=== PATIENT | male | born 1955 | race Caucasian/White ===

== ENCOUNTER 2017-10-29 09:35 | Inpatient (IN) | payer MEDICARE, MEDICAID ==
--- NOTE | 2017-10-29 10:11 | C.PDOC ---
History Of Present Illness 62 y/o male with history of DM and HTN presents to ED for evaluation on possible Gangrene to left great toe. Patient states he had wound on left foot for "awhile" and was told to come to ED for further evaluation. Dr. Diez called ED prior to patient visit instructed CTA and Pre op work up to be done and admit under his service. 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 Time Seen by Provider: 10/29/17 09:59 Chief Complaint (Nursing): Lower Extremity Problem/Injury History Per: Patient History/Exam Limitations: no limitations Onset/Duration Of Symptoms: Days Current Symptoms Are (Timing): Still Present Past Medical History Reviewed: Historical Data, Nursing Documentation, Vital Signs Vital Signs: Last Vital Signs Temp 98.4 F 10/29/17 13:17 Pulse 76 10/29/17 13:17 Resp 18 10/29/17 13:17 BP 207/83 H 10/29/17 13:17 Pulse Ox 98 10/29/17 13:17 - Medical History PMH: CHF, Diabetes, HTN, Hypercholesterolemia Surgical History: No Surg Hx Family History: States: No Known Family Hx - Social History Hx Alcohol Use: Yes Hx Substance Use: No - Immunization History Hx Tetanus Toxoid Vaccination: No Hx Influenza Vaccination: Yes Hx Pneumococcal Vaccination: Yes Review Of Systems Constitutional: Negative for: Fever, Chills Cardiovascular: Negative for: Chest Pain Respiratory: Negative for: Shortness of Breath Musculoskeletal: Positive for: Foot Pain Skin: Negative for: Rash Neurological: Negative for: Weakness, Numbness Physical Exam - Physical Exam Appears: Non-toxic, No Acute Distress Skin: Warm, Dry, No Rash Head: Atraumatic, Normacephalic Eye(s): bilateral: Normal Inspection Oral Mucosa: Moist Neck: Normal ROM, Supple Extremity: No Pedal Edema, No Deformity, Other (medial aspect of left great toe wound noted with ulcerated area. Erythematous foot) Extremity: Bilateral: Normal ROM Pulses: Left Dorsalis Pedis: Normal, Right Dorsalis Pedis: Normal Neurological/Psych: Oriented x3, Normal Motor, Normal Sensation Gait: Steady ED Course And Treatment - Laboratory Results Result Diagrams: 10/29/17 10:27 10/29/17 10:27 Lab Interpretation: Normal ECG: Interpreted By Me ECG Rhythm: Sinus Rhythm ECG Interpretation: Normal Rate From EC O2 Sat by Pulse Oximetry: 98 (RA) Pulse Ox Interpretation: Normal - Radiology CXR: Interpreted by Me CXR Interpretation: Yes: No Acute Disease Progress Note: CTA, Blood work, CXR, UA ordered. IV fluids administered. Patient sent by Dr Diez for evaluation of gangrene left foot. CTA lower extremity ordered Reassessment Condition: Unchanged - Physician Consult Information Physician Contacted: Jonathan Diez Jr. Outcome Of Conversation: admit Disposition Discussed With Dr.: Jonathan Diez Jr. 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 - Scribe Statement The provider has reviewed the documentation as recorded by the Scribe Lucy Liu All medical record entries made by the Scribe were at my direction and personally dictated by me. I have reviewed the chart and agree that the record accurately reflects my personal performance of the history, physical exam, medical decision making, and the department course for this patient. I have also personally directed, reviewed, and agree with the discharge instructions and disposition. Decision To Admit - Pt Status Changed To: Hospital Disposition Of: Inpatient - Admit Certification Admit to Inpatient:: After my assessment, the patient will require hospitalization for at least two midnights. This is because of the severity of symptoms shown, intensity of services needed, and/or the medical risk in this patient being treated as an outpatient. - InPatient: Physician Admission Certification: I certify that this patient requires 2 or more midnights of care for the following reason:: OVD. Gangrene left great toe - . Bed Request Type: Regular Admitting Physician: Jonathan Diez Jr. Patient Diagnosis: PVD (peripheral vascular disease)
[2017-10-29] MEDS ORDERED: Sodium Chloride 0.9% 1,000 ML IV ONE (10:12)
[2017-10-29] MEDS ORDERED: Sodium Chloride 0.9% 1,000 ML ONE (10:29)
[2017-10-29 10:31] LABS: BASO % 0.6 % (0.0-2.0); EOS # 0.2 K/uL (0.0-0.7); EOS % 2.5 % (0.0-4.0); HEMOGLOBIN 12.9 g/dL (12.0-18.0); LYMPH # 1.2 K/uL (1.0-4.3); MEAN CELL VOLUME 90.2 fL (80.0-94.0); MEAN CORPUSCULAR HGB CONC 34.4 g/dL (33.0-37.0); MEAN PLATELET VOLUME 8.6 fL (7.2-11.7); MONO # 0.9 K/uL (0.0-0.8); MONO % 11.5 % (0.0-10.0); NEUT # 5.7 K/uL (1.8-7.0); NEUT % 70.4 % (50.0-75.0); NRBC % 0.1 % (0.0-2.0); RBC 4.16 Mil/uL (4.40-5.90); RED CELL DISTRIBUTION WIDTH 12.9 % (11.5-14.5)
[2017-10-29 10:37] LABS: PROTHROMBIN TIME 11.1 SECONDS (9.7-12.2)
--- NOTE | 2017-10-29 10:47 | RAD ---
HISTORY: SOB COMPARISON: No prior. TECHNIQUE: Chest PA and lateral FINDINGS: LUNGS: No active pulmonary disease. PLEURA: No significant pleural effusion identified. No pneumothorax apparent. CARDIOVASCULAR: Normal. OSSEOUS STRUCTURES: Degenerative changes. VISUALIZED UPPER ABDOMEN: Normal. OTHER FINDINGS: None. IMPRESSION: No active disease.
[2017-10-29 10:58] LABS: ALB/GLOB RATIO 1.1 (1.0-2.1); ALBUMIN 4.1 g/dL (3.5-5.0); AST/SGOT 20 U/L (17-59); BLOOD UREA NITROGEN 18 mg/dL (9-20); CALCIUM 9.2 mg/dl (8.6-10.4); GFR AFRICAN-AMERICAN > 60; GFR NON-AFRICAN AMERICAN > 60
[2017-10-29 11:03] LABS: ALT/SGPT < 6 U/L (21-72)
[2017-10-29] MEDS ORDERED: Iodixanol 320 mg/ml 150 ml Bottle IV ONE (11:43)
[2017-10-29 11:53] LABS: URINE BILIRUBIN NEGATIVE (NEGATIVE); URINE BLOOD NEGATIVE (NEGATIVE); URINE CLARITY Clear (Clear); URINE COLOR Yellow (YELLOW); URINE GLUCOSE (UA) 3+ mg/dL (Normal); URINE LEUKOCYTE ESTERASE NEG Leu/uL (Negative); URINE PROTEIN NEGATIVE (NEGATIVE); URINE UROBILINOGEN NORMAL mg/dL (0.2-1.0)
--- NOTE | 2017-10-29 13:51 | CT ---
PROCEDURE: CT Angiography Abdomen, Pelvis and Lower Extremity with Contrast HISTORY: gangrene left great toe COMPARISON: None. TECHNIQUE: Technique: CT angiography of the abdomen, pelvis and bilateral lower extremities performed in the arterial phase of enhancement. Coronal and sagittal reformats, and well as rotating MIP images of the vessels generated at the workstation. Intravenous contrast dose: 150 mL Visipaque 320 Radiation dose: Total exam DLP = 2350.2 mGy-cm. This CT exam was performed using one or more of the following dose reduction techniques: Automated exposure control, adjustment of the mA and/or kV according to patient size, and/or use of iterative reconstruction technique. FINDINGS: CT ANGIOGRAPHY: ABDOMINAL AORTA:: Mild calcific atherosclerosis. No aneurysm or stenosis. MAJOR AORTIC BRANCHES: Celiac Mc[place]: Unremarkable. Superior mesenteric artery: Unremarkable. Inferior mesenteric artery: Calcific atherosclerotic ostial stenosis. Renal arteries: Unremarkable. PELVIC ARTERIES: Right Common Iliac: Unremarkable. Right External Iliac: Unremarkable. Right Internal Iliac: Unremarkable. Left Common Iliac: Unremarkable. Left External Iliac: Unremarkable. Left Internal Iliac: Unremarkable. RIGHT LOWER EXTREMITY ARTERIES: Right Common Femoral: Unremarkable. Right Superficial Femoral: Calcific atherosclerosis, patent. Right Profunda Femoris: Unremarkable. Right Popliteal:Calcific atherosclerosis with focal moderate stenosis in the proximal portion. Right Anterior Tibial: Faint opacification with poor visualization distally. Right Tibioperoneal Trunk: Limited evaluation due to arterial wall calcification. Right Posterior Tibial: Limited evaluation due to arterial wall calcification. Right Peroneal: Limited evaluation due to arterial wall calcification. 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 Limited evaluation due to arterial wall calcification. LEFT LOWER EXTREMITY ARTERIES: Left Common Femoral: Unremarkable. Left Superficial Femoral: Unremarkable. Left Profunda Femoris: Unremarkable. Left Popliteal: Unremarkable. Left Anterior Tibial: Faint opacification with poor visualization distally. Left Tibioperoneal Trunk: Calcific atherosclerosis, patent. Left Posterior Tibial: Limited evaluation due to arterial wall calcification. Grossly patent. Left Peroneal: Occluded at origin. Limited evaluation due to arterial wall calcification. 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 Limited evaluation due arterial wall calcification. NON-ANGIOGRAPHIC ASPECT OF THE EXAM: LOWER THORAX: Unremarkable. LIVER: Unremarkable. No gross lesion or ductal dilatation. GALLBLADDER AND BILE DUCTS: Unremarkable. PANCREAS: Unremarkable. No gross lesion or ductal dilatation. SPLEEN: Unremarkable. ADRENALS: Unremarkable. No mass. KIDNEYS AND URETERS: Right upper pole 2.3 x 2.1 cm cyst. Right interpolar 1.0 x 0.7 cm indeterminate hypodensity. Left interpolar 2.0 x 1.2 cm cyst. No hydronephrosis. STOMACH AND BOWEL: Unremarkable. No obstruction. No gross mural thickening. APPENDIX: Normal appendix. PERITONEUM: Unremarkable. No free fluid. No free air. LYMPH NODES: Unremarkable. No enlarged lymph nodes. BLADDER: Unremarkable. REPRODUCTIVE: Unremarkable. BONES: No acute fracture. OTHER FINDINGS: None. IMPRESSION: Right lower extremity: Limited evaluation of the [id number] arteries due to heavy arterial wall calcification. 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 Limited evaluation of the foot arteries due to heavy arterial wall calcification. Left lower extremity: Limited evaluation of the [id number] arteries to get heavy arterial wall calcification. 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 Arterial wall calcifications, but grossly patent posterior tibial artery with runoff to the foot. Indeterminate right interpolar renal 1.0 cm hypodensity. Additional findings as above.
[2017-10-29] MEDS: Labetalol 25mg/5ml Syringe IVP ONE ×2 (15:15→15:42)
[2017-10-29 15:24] VITALS: RESP 20
--- NOTE | 2017-10-29 15:33 | CP.PCM.CON ---
<Iraida Martin - Last Filed: 10/29/17 17:02> History of Present Illness - History of Present Illness History of Present Illness: HPI: gangrene of left toe Patient came in for wound on left foot that's been there for an unknown length of time ("awhile"). Dr. Milan ordered CTA and pre-op workup for clearance for surgery. Patient states he was treated at [facility]/04 and was seen by podiatry. Patient states he still has sensation of his toes and has a little pain on palpation of his first left toe. Patient denies fever, chills, nausea, vomiting diarrhea, constipation, shortness of breath, numbness, tingling, weakness. Patient admits to vision changes due to cataract surgery (stable),. pmh: Diabetes, HTN, HLD psh: 2016 cataract repair. Social: etoh use socially, denies tobacco and illicit drug use. Podiatry: : Baljinder OVD. 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 absent: Other Nose/Mouth/Throat: As Per HPI. absent: Epistaxis, Nasal Congestion, Dysphagia, Mouth Lesions, Tongue Swelling, Facial Pain - Cardiovascular Cardiovascular: As Per HPI. absent: Chest Pain, Chest Pain with Activity, Dyspnea on Exertion - Respiratory Respiratory: absent: Cough, Dyspnea, Hemoptysis, Dyspnea on Exertion - Gastrointestinal Gastrointestinal: absent: Abdominal Pain, Belching - Genitourinary Genitourinary: absent: Urinary Frequency, Urinary Hesitance, Urinary Urgency - Musculoskeletal Musculoskeletal: absent: Abnormal Gait, Arthralgias, Atrophy - Neurological Neurological: absent: Abnormal Gait, Abnormal Hearing, Numbness, Tingling Past Patient History - Past Medical History & Family History Past Medical History?: Yes - Past Social History Smoking Status: Never Smoked - CARDIAC Hx Congestive Heart Failure: Yes Hx Hypercholesterolemia: Yes Hx Hypertension: Yes - PULMONARY Hx Respiratory Disorders: No - NEUROLOGICAL Hx Neurological Disorder: No - HEENT Hx HEENT Problems: No - RENAL Hx Chronic Kidney Disease: No - ENDOCRINE/METABOLIC Hx Endocrine Disorders: Yes Hx Diabetes Mellitus Type 2: Yes - HEMATOLOGICAL/ONCOLOGICAL Hx Blood Disorders: No - INTEGUMENTARY Hx Dermatological Problems: No - MUSCULOSKELETAL/RHEUMATOLOGICAL Hx Musculoskeletal Disorders: No Hx Falls: No - GASTROINTESTINAL Hx Gastrointestinal Disorders: No - GENITOURINARY/GYNECOLOGICAL Hx Genitourinary Disorders: No - PSYCHIATRIC Hx Substance Use: No - SURGICAL HISTORY Hx Surgeries: Yes Hx Eye Surgery: Yes - ANESTHESIA Hx Anesthesia: Yes Hx Anesthesia Reactions: No Hx Malignant Hyperthermia: No Meds Allergies/Adverse Reactions: Allergies Allergy/AdvReac Type Severity Reaction Status Date / Time No Known Allergies Allergy Verified 10/04/17 10:46 - Medications Medications: Current Medications Carvedilol (Coreg) 6.25 mg PO BID [facility] Chlorthalidone (Hygroton) 25 mg PO DAILY [facility] Losartan Potassium (Cozaar) 100 mg PO DAILY [facility] Physical Exam - Constitutional Appears: Non-toxic, No Acute Distress - Head Exam Head Exam: ATRAUMATIC, NORMAL INSPECTION, NORMOCEPHALIC - Eye Exam Eye Exam: EOMI, Normal appearance - ENT Exam ENT Exam: Mucous Membranes Moist - Neck Exam Neck exam: Positive for: Full Rom. Negative for: Lymphadenopathy, Tenderness, Thyromegaly - Respiratory Exam Respiratory Exam: Clear to Auscultation Bilateral, NORMAL BREATHING PATTERN. absent: Wheezes - Cardiovascular Exam Cardiovascular Exam: REGULAR RHYTHM, +S1, +S2 - GI/Abdominal Exam GI & Abdominal Exam: Normal Bowel Sounds, Soft. absent: Tenderness - Extremities Exam Extremities exam: Positive for: full ROM. Negative for: normal inspection, pedal edema Additional comments: left first mtp dry gangrenous medial side of toe about 2.5 cm by 2 cm in dimension. dp pt pulses palpated bilaterally warm to touch erythema on left foot, not sharply demarcated Results - Vital Signs Recent Vital Signs: Last Vital Signs Temp 98.4 F 10/29/17 13:17 Pulse 61 10/29/17 15:24 Resp 20 10/29/17 15:24 BP 168/63 H 10/29/17 15:24 Pulse Ox 99 10/29/17 15:24 - Labs Result Diagrams: 10/29/17 10:27 10/29/17 10:27 Labs: Laboratory Results - last 24 hr 10/29/17 10/29/17 10/29/17 10:27 10:27 10:27 WBC 8.0 RBC 4.16 L Hgb 12.9 Hct 37.5 MCV 90.2 MCH 31.0 MCHC 34.4 RDW 12.9 Plt Count 253 MPV 8.6 Neut % (Auto) 70.4 Lymph % (Auto) 15.0 L [place] % (Auto) 11.5 H Eos % (Auto) 2.5 Baso % (Auto) 0.6 Neut # (Auto) 5.7 Lymph # (Auto) 1.2 [place] # (Auto) 0.9 H Eos # (Auto) 0.2 Baso # (Auto) 0.0 PT 11.1 INR 1.0 Sodium 138 Potassium 3.8 Chloride 98 Carbon Dioxide 28 Anion Gap 16 BUN 18 Creatinine 0.7 L Est GFR ( Amer) > 60 Est GFR (Non-Af Amer) > 60 Random Glucose 221 H Calcium 9.2 Total Bilirubin 0.5 AST 20 ALT < 6 L Alkaline Phosphatase 48 Total Protein 8.0 Albumin 4.1 Globulin 3.9 Albumin/Globulin Ratio 1.1 Urine Color Urine Clarity Urine pH Ur Specific [place] Urine Protein Urine Glucose (UA) Urine Ketones Urine Blood Urine Nitrate Urine Bilirubin Urine Urobilinogen Ur Leukocyte Esterase Urine WBC (Auto) Urine RBC (Auto) Blood Type Antibody Screen 10/29/17 10/29/17 10:59 11:48 WBC RBC Hgb Hct MCV MCH MCHC RDW Plt Count MPV Neut % (Auto) Lymph % (Auto) [place] % (Auto) Eos % (Auto) Baso % (Auto) Neut # (Auto) Lymph # (Auto) [place] # (Auto) Eos # (Auto) Baso # (Auto) PT INR Sodium Potassium Chloride Carbon Dioxide Anion Gap BUN Creatinine Est GFR ( Amer) Est GFR (Non-Af Amer) Random Glucose Calcium Total Bilirubin AST ALT Alkaline Phosphatase Total Protein Albumin Globulin Albumin/Globulin Ratio Urine Color Yellow Urine Clarity Clear Urine pH 6.0 Ur Specific [place] 1.015 Urine Protein Negative Urine Glucose (UA) 3+ H Urine Ketones Negative Urine Blood Negative Urine Nitrate Negative Urine Bilirubin Negative Urine Urobilinogen Normal Ur Leukocyte Esterase Neg Urine WBC (Auto) < 1 Urine RBC (Auto) < 1 Blood Type A POSITIVE Antibody Screen Negative Assessment & Plan - Assessment and Plan (Free Text) Assessment: 62M with pmh htn, hld, dm presents with gangrene of first left toe. Medicine team consulted for uncontrolled HTN gangrene of first left toe, cellulitis of foot patient treated at [facility] 10/04 vancomycin f/u CBC f/u angio uncontrolled HTN Patient to continue home medication for blood pressure Valsartan Coreg Hydralazine 10mg IVP Q6H IVP Hydralazine 50mg PO BID DM insulin sliding scale accucheck q6h hold home medication for diabetes hypoglycemic protocol diet and pain medications to be managed by Surgery Team Iraida Martin - Date & Time Date: 10/29/17 Time: 17:05 <Pawel Zhong - Last Filed: 10/30/17 07:18> Meds - Medications Medications: Current Medications Alprazolam (Xanax) 0.25 mg PO TID PRN PRN Reason: Anxiety Stop: 11/05/17 15:50 Carvedilol (Coreg) 6.25 mg PO BID [facility] Last Admin: 10/29/17 17:21 Dose: 6.25 mg Chlorthalidone (Hygroton) 25 mg PO DAILY [facility] Dextrose (Dextrose 50% Inj) 0 ml IVP .STAT PRN; Protocol PRN Reason: Hypoglycemia Protocol Dextrose (Glutose 15) 0 gm PO .ONCE PRN; Protocol PRN Reason: Hypoglycemia Protocol Enoxaparin Sodium (Lovenox) 30 mg SC ONCE ONE Stop: 10/30/17 22:01 Glucagon (Glucagen Diagnostic Kit) 0 mg IM .STAT PRN; Protocol PRN Reason: Hypoglycemia Protocol Hydralazine HCl (Apresoline) 10 mg IVP Q6H PRN PRN Reason: htn Last Admin: 10/29/17 16:28 Dose: 10 mg Hydralazine HCl (Apresoline) 50 mg PO BID [facility] Last Admin: 10/29/17 17:22 Dose: 50 mg Vancomycin/Sodium Chloride (Vancomycin 1 Gm/Ns 200 Ml) 1 gm in 200 mls @ 133 mls/hr IVPB Q24H [facility] Stop: 11/03/17 17:01 Last Admin: 10/29/17 17:00 Dose: 133 mls/hr Dextrose (Dextrose 5% In Water 1000 Ml) 1,000 mls @ 0 mls/hr IV .Q0M PRN; Protocol; Per Protocol PRN Reason: Hypoglycemia Protocol Insulin Human Regular (Novolin R) 0 unit SC ACHS BALA PRN Reason: Protocol Last Admin: 10/29/17 21:43 Dose: Not Given Losartan Potassium (Cozaar) 100 mg PO DAILY [facility] Pneumococcal Polyvalent Vaccine (Pneumovax 23 Vaccine) 0.5 ml IM .ONCE ONE Stop: 10/31/17 10:01 Results - Vital Signs Recent Vital Signs: Last Vital Signs Temp 98.2 F 10/29/17 23:57 Pulse 81 10/29/17 23:57 Resp 20 10/29/17 23:57 BP 152/65 H 10/29/17 23:57 Pulse Ox 98 10/29/17 23:57 - Labs Result Diagrams: 10/29/17 10:27 10/29/17 10:27 Labs: Laboratory Results - last 24 hr 10/29/17 10/29/17 10/29/17 10:27 10:27 10:27 WBC 8.0 RBC 4.16 L Hgb 12.9 Hct 37.5 MCV 90.2 MCH 31.0 MCHC 34.4 RDW 12.9 Plt Count 253 MPV 8.6 Neut % (Auto) 70.4 Lymph % (Auto) 15.0 L [place] % (Auto) 11.5 H Eos % (Auto) 2.5 Baso % (Auto) 0.6 Neut # (Auto) 5.7 Lymph # (Auto) 1.2 [place] # (Auto) 0.9 H Eos # (Auto) 0.2 Baso # (Auto) 0.0 PT 11.1 INR 1.0 Sodium 138 Potassium 3.8 Chloride 98 Carbon Dioxide 28 Anion Gap 16 BUN 18 Creatinine 0.7 L Est GFR ( Amer) > 60 Est GFR (Non-Af Amer) > 60 POC Glucose (mg/dL) Random Glucose 221 H Calcium 9.2 Total Bilirubin 0.5 AST 20 ALT < 6 L Alkaline Phosphatase 48 Total Protein 8.0 Albumin 4.1 Globulin 3.9 Albumin/Globulin Ratio 1.1 Urine Color Urine Clarity Urine pH Ur Specific [place] Urine Protein Urine Glucose (UA) Urine Ketones Urine Blood Urine Nitrate Urine Bilirubin Urine Urobilinogen Ur Leukocyte Esterase Urine WBC (Auto) Urine RBC (Auto) Blood Type Antibody Screen 10/29/17 10/29/17 10/29/17 10:59 11:48 17:06 WBC RBC Hgb Hct MCV MCH MCHC RDW Plt Count MPV Neut % (Auto) Lymph % (Auto) [place] % (Auto) Eos % (Auto) Baso % (Auto) Neut # (Auto) Lymph # (Auto) [place] # (Auto) Eos # (Auto) Baso # (Auto) PT INR Sodium Potassium Chloride Carbon Dioxide Anion Gap BUN Creatinine Est GFR ( Amer) Est GFR (Non-Af Amer) POC Glucose (mg/dL) 80 Random Glucose Calcium Total Bilirubin AST ALT Alkaline Phosphatase Total Protein Albumin Globulin Albumin/Globulin Ratio Urine Color Yellow Urine Clarity Clear Urine pH 6.0 Ur Specific [place] 1.015 Urine Protein Negative Urine Glucose (UA) 3+ H Urine Ketones Negative Urine Blood Negative Urine Nitrate Negative Urine Bilirubin Negative Urine Urobilinogen Normal Ur Leukocyte Esterase Neg Urine WBC (Auto) < 1 Urine RBC (Auto) < 1 Blood Type A POSITIVE Antibody Screen Negative 10/29/17 21:20 WBC RBC Hgb Hct MCV MCH MCHC RDW Plt Count MPV Neut % (Auto) Lymph % (Auto) [place] % (Auto) Eos % (Auto) Baso % (Auto) Neut # (Auto) Lymph # (Auto) [place] # (Auto) Eos # (Auto) Baso # (Auto) PT INR Sodium Potassium Chloride Carbon Dioxide Anion Gap BUN Creatinine Est GFR ( Amer) Est GFR (Non-Af Amer) POC Glucose (mg/dL) 144 H Random Glucose Calcium Total Bilirubin AST ALT Alkaline Phosphatase Total Protein Albumin Globulin Albumin/Globulin Ratio Urine Color Urine Clarity Urine pH Ur Specific [place] Urine Protein Urine Glucose (UA) Urine Ketones Urine Blood Urine Nitrate Urine Bilirubin Urine Urobilinogen Ur Leukocyte Esterase Urine WBC (Auto) Urine RBC (Auto) Blood Type Antibody Screen Attending/Attestation - Attestation I have personally seen and examined this patient.: Yes I have fully participated in the care of the patient.: Yes I have reviewed all pertinent clinical information: Yes Notes (Text): Medical attending: patient was seen and examined by me. Agree with the above note by the resident The patient was seen in the emergency room when I saw him. Medicine has been consulted due to very elevated BP that were found in the emergency room. Some of the recorded numbers show systolics greater than 200 and he had already been given labetalol. Patient is already on medication for blood pressure as well as DM. We will continue his medication for BP and also add on IV hydralazine 10mg IV Q6hrs PRN. Also added hydralazine 50 mg PO TID for now. We can increase the frquency or the doseage of the hydralzaine. Other options would include increasing the coreg. There is possibly the patient is very overly anxious contributing to the blood pressure. From what I understand the patient will be undergoing angiogram to further evaluation of the lower extremity tommorow. thank you Pawel Zhong
--- NOTE | 2017-10-29 15:56 | CP.PCM.HP ---
History of Present Illness - History of Present Illness History of Present Illness: Vascular surgery H & P for Dr. Kayli Rick, PGY-1 Pt S & E at bedside. 62M w/PMH sig for DM, HTN admitted for non-healing wound of left hallux x 1.5 mos. Advised by panama hat blocker to come to ED for evaluation. Wound occured after lacerating his toe while putting a sock on. Admits to intermittent peripheral neuropathy, occasional swelling, redness, and warmth of the L hallux, hx of healing foot ulcers, and blurry vision. Denies discharge or drainage from hallux , hx of blood clots, [place], subjective fevers, CP, Palpitations, SOB, N,V,D,and C. PMHX: DM2, HTN, HLD PSHX: Catracts (2016) All: NKDA SH: admits to occasional EtOH use, denies tobacco and illciit drug use Out pt panama hat blocker: Dr. Gale Present on Admission - Present on Admission Any Indicators Present on Admission: No History of DVT/PE: No History of Uncontrolled Diabetes: No Urinary Catheter: No Decubitus Ulcer Present: No Review of Systems - Review of Systems All systems: reviewed and no additional remarkable complaints except - Constitutional Constitutional: absent: Chills, Fever - EENT Eyes: Blurred Vision (chronic). absent: Change in Vision Ears: absent: Dizziness Nose/Mouth/Throat: absent: Sore Throat - Cardiovascular Cardiovascular: absent: Chest Pain - Respiratory Respiratory: absent: Cough - Gastrointestinal Gastrointestinal: absent: Abdominal Pain, Constipation, Diarrhea, Nausea, Vomiting - Genitourinary Genitourinary: absent: Change in Urinary Stream, Dysuria - Musculoskeletal Musculoskeletal: Numbness, Tingling. absent: Back Pain - Integumentary Integumentary: Non-Healing Lesions - Neurological Neurological: Numbness, Tingling - Psychiatric Psychiatric: Anxiety. absent: Change in Appetite - Endocrine Endocrine: absent: Palpitations Past Patient History - Past Medical History & Family History Past Medical History?: Yes - Past Social History Smoking Status: Never Smoked - CARDIAC Hx Congestive Heart Failure: Yes Hx Hypercholesterolemia: Yes Hx Hypertension: Yes - PULMONARY Hx Respiratory Disorders: No - NEUROLOGICAL Hx Neurological Disorder: No - HEENT Hx HEENT Problems: No - RENAL Hx Chronic Kidney Disease: No - ENDOCRINE/METABOLIC Hx Endocrine Disorders: Yes Hx Diabetes Mellitus Type 2: Yes - HEMATOLOGICAL/ONCOLOGICAL Hx Blood Disorders: No - INTEGUMENTARY Hx Dermatological Problems: No - MUSCULOSKELETAL/RHEUMATOLOGICAL Hx Musculoskeletal Disorders: No Hx Falls: No - GASTROINTESTINAL Hx Gastrointestinal Disorders: No - GENITOURINARY/GYNECOLOGICAL Hx Genitourinary Disorders: No - PSYCHIATRIC Hx Substance Use: No - SURGICAL HISTORY Hx Surgeries: Yes Hx Eye Surgery: Yes - ANESTHESIA Hx Anesthesia: Yes Hx Anesthesia Reactions: No Hx Malignant Hyperthermia: No Meds Allergies/Adverse Reactions: Allergies Allergy/AdvReac Type Severity Reaction Status Date / Time No Known Allergies Allergy Verified 10/04/17 10:46 Physical Exam - Constitutional Appears: Non-toxic, No Acute Distress - Head Exam Head Exam: ATRAUMATIC, NORMAL INSPECTION, NORMOCEPHALIC - Eye Exam Eye Exam: EOMI, Normal appearance - ENT Exam ENT Exam: Mucous Membranes Moist, Normal Exam - Neck Exam Neck exam: Positive for: Full Rom, Normal Inspection - Respiratory Exam Respiratory Exam: Clear to Auscultation Bilateral, NORMAL BREATHING PATTERN - Cardiovascular Exam Cardiovascular Exam: REGULAR RHYTHM, +S1, +S2 - GI/Abdominal Exam GI & Abdominal Exam: Soft. absent: Tenderness - Extremities Exam Extremities exam: Positive for: pedal pulses present. Negative for: tenderness Additional comments: Left hallux with escar on lateral aspect, non tender, no erythema, no drainage noted - Neurological Exam Neurological exam: Alert, CN II-XII Intact, Oriented x3 - Psychiatric Exam Psychiatric exam: Normal Affect, Normal Mood - Skin Skin Exam: Dry, Intact, Normal Color, Warm Additional comments: see extremity exam for L hallux findings Results - Vital Signs Recent Vital Signs: Last Vital Signs Temp 98.4 F 10/29/17 13:17 Pulse 61 10/29/17 15:24 Resp 20 10/29/17 15:24 BP 168/63 H 10/29/17 15:24 Pulse Ox 99 10/29/17 15:24 - Labs Result Diagrams: 10/29/17 10:27 10/29/17 10:27 Labs: Laboratory Results - last 24 hr 10/29/17 10/29/17 10/29/17 10:27 10:27 10:27 WBC 8.0 RBC 4.16 L Hgb 12.9 Hct 37.5 MCV 90.2 MCH 31.0 MCHC 34.4 RDW 12.9 Plt Count 253 MPV 8.6 Neut % (Auto) 70.4 Lymph % (Auto) 15.0 L Gates % (Auto) 11.5 H Eos % (Auto) 2.5 Baso % (Auto) 0.6 Neut # (Auto) 5.7 Lymph # (Auto) 1.2 Gates # (Auto) 0.9 H Eos # (Auto) 0.2 Baso # (Auto) 0.0 PT 11.1 INR 1.0 Sodium 138 Potassium 3.8 Chloride 98 Carbon Dioxide 28 Anion Gap 16 BUN 18 Creatinine 0.7 L Est GFR ( Amer) > 60 Est GFR (Non-Af Amer) > 60 Random Glucose 221 H Calcium 9.2 Total Bilirubin 0.5 AST 20 ALT < 6 L Alkaline Phosphatase 48 Total Protein 8.0 Albumin 4.1 Globulin 3.9 Albumin/Globulin Ratio 1.1 Urine Color Urine Clarity Urine pH Ur Specific [place] Urine Protein Urine Glucose (UA) Urine Ketones Urine Blood Urine Nitrate Urine Bilirubin Urine Urobilinogen Ur Leukocyte Esterase Urine WBC (Auto) Urine RBC (Auto) Blood Type Antibody Screen 10/29/17 10/29/17 10:59 11:48 WBC RBC Hgb Hct MCV MCH MCHC RDW Plt Count MPV Neut % (Auto) Lymph % (Auto) Gates % (Auto) Eos % (Auto) Baso % (Auto) Neut # (Auto) Lymph # (Auto) Gates # (Auto) Eos # (Auto) Baso # (Auto) PT INR Sodium Potassium Chloride Carbon Dioxide Anion Gap BUN Creatinine Est GFR ( Amer) Est GFR (Non-Af Amer) Random Glucose Calcium Total Bilirubin AST ALT Alkaline Phosphatase Total Protein Albumin Globulin Albumin/Globulin Ratio Urine Color Yellow Urine Clarity Clear Urine pH 6.0 Ur Specific [place] 1.015 Urine Protein Negative Urine Glucose (UA) 3+ H Urine Ketones Negative Urine Blood Negative Urine Nitrate Negative Urine Bilirubin Negative Urine Urobilinogen Normal Ur Leukocyte Esterase Neg Urine WBC (Auto) < 1 Urine RBC (Auto) < 1 Blood Type A POSITIVE Antibody Screen Negative Assessment & Plan - Assessment and Plan (Free Text) Assessment: 62M w/PMH sig for DM & HTN admitted for L hallux unhealing wound Plan: Admit Med Surg VS Q4 Vancomycin re-started home meds Diabetic diet NPO pMN Plan for angio tomorrow FU AM labs Consent in chart Activity ad annette OOBTC Ambulate Xanax 0.25mg PRN ISS [facility] Medicine consult DW attending Merline, PGY-1 - Date & Time Date: 10/29/17 Time: 15:54 Decision To Admit - Pt Status Changed To: Hospital Disposition Of: Inpatient - Admit Certification Admit to Inpatient:: After my assessment, the patient will require hospitalization for at least two midnights. This is because of the severity of symptoms shown, intensity of services needed, and/or the medical risk in this patient being treated as an outpatient. - InPatient: Physician Admission Certification:: Left hallux gangrene requiring intervention - . Bed Request Type: Regular Admitting Physician: Jonathan Milan Jr.
[2017-10-29] MEDS ORDERED: Vancomycin 1 gm/NS 200 ml 1 GM/200 ML BAG IVPB SCH (16:00)
[2017-10-29] MEDS ORDERED: Glucagon Recombinant 1 mg Inj IM PRN (16:21)
[2017-10-29] MEDS ORDERED: Dextrose 50% SYRINGE Inj (50 ml) IVP PRN (16:21)
[2017-10-29] MEDS ORDERED: (Novolin R) Insulin Human Regular 100 units/ml vial SC SCH (16:30)
[2017-10-29] MEDS: Vancomycin 1 gm/NS 200 ml 1 GM/200 ML BAG IVPB SCH (17:00)
[2017-10-29] MEDS: (Novolin R) Insulin Human Regular 100 units/ml vial SC SCH (21:43)
--- NOTE | 2017-10-30 07:22 | CP.PCM.PN ---
<VeronicaIraida - Last Filed: 10/30/17 13:12> Subjective - Date & Time of Evaluation Date of Evaluation: 10/30/17 Time of Evaluation: 07:21 - Subjective Subjective: Progress Note Patient seen and examined at bedside. No acute events overnight. Patient states he has no headache, dizziness,chest pain, shortness of breath. Patient states he 's tolerating pain well.Patient states he's tolerating blood pressure medication well. Objective - Vital Signs/Intake and Output Vital Signs (last 24 hours): Temp Pulse Resp BP Pulse Ox 98.2 F 81 20 152/65 H 98 10/29/17 23:57 10/29/17 23:57 10/29/17 23:57 10/29/17 23:57 10/29/17 23:57 Intake and Output: 10/30/17 10/30/17 06:59 18:59 Intake Total 240 Balance 240 - Medications Medications: Current Medications Alprazolam (Xanax) 0.25 mg PO TID PRN PRN Reason: Anxiety Stop: 11/05/17 15:50 Carvedilol (Coreg) 6.25 mg PO BID [facility] Last Admin: 10/29/17 17:21 Dose: 6.25 mg Chlorthalidone (Hygroton) 25 mg PO DAILY [facility] Dextrose (Dextrose 50% Inj) 0 ml IVP .STAT PRN; Protocol PRN Reason: Hypoglycemia Protocol Dextrose (Glutose 15) 0 gm PO .ONCE PRN; Protocol PRN Reason: Hypoglycemia Protocol Enoxaparin Sodium (Lovenox) 30 mg SC ONCE ONE Stop: 10/30/17 22:01 Glucagon (Glucagen Diagnostic Kit) 0 mg IM .STAT PRN; Protocol PRN Reason: Hypoglycemia Protocol Hydralazine HCl (Apresoline) 10 mg IVP Q6H PRN PRN Reason: htn Last Admin: 10/29/17 16:28 Dose: 10 mg Hydralazine HCl (Apresoline) 50 mg PO BID [facility] Last Admin: 10/29/17 17:22 Dose: 50 mg Vancomycin/Sodium Chloride (Vancomycin 1 Gm/Ns 200 Ml) 1 gm in 200 mls @ 133 mls/hr IVPB Q24H [facility] Stop: 11/03/17 17:01 Last Admin: 10/29/17 17:00 Dose: 133 mls/hr Dextrose (Dextrose 5% In Water 1000 Ml) 1,000 mls @ 0 mls/hr IV .Q0M PRN; Protocol; Per Protocol PRN Reason: Hypoglycemia Protocol Insulin Human Regular (Novolin R) 0 unit SC ACHS BALA PRN Reason: Protocol Last Admin: 10/29/17 21:43 Dose: Not Given Losartan Potassium (Cozaar) 100 mg PO DAILY [facility] Pneumococcal Polyvalent Vaccine (Pneumovax 23 Vaccine) 0.5 ml IM .ONCE ONE Stop: 10/31/17 10:01 - Labs Labs: 10/29/17 10:27 10/29/17 10:27 PT 11.1 SECONDS (9.7-12.2) 10/29/17 10: INR 1.0 10/29/17 10:27 - Additional Findings Additional findings: - Constitutional Appears: Non-toxic, No Acute Distress - Head Exam Head Exam: ATRAUMATIC, NORMAL INSPECTION, NORMOCEPHALIC - Eye Exam Eye Exam: EOMI, Normal appearance - ENT Exam ENT Exam: Mucous Membranes Moist - Neck Exam Neck exam: Positive for: Full Rom. Negative for: Lymphadenopathy, Tenderness, Thyromegaly - Respiratory Exam Respiratory Exam: Clear to Auscultation Bilateral, NORMAL BREATHING PATTERN. absent: Wheezes - Cardiovascular Exam Cardiovascular Exam: REGULAR RHYTHM, +S1, +S2 - GI/Abdominal Exam GI & Abdominal Exam: Normal Bowel Sounds, Soft. absent: Tenderness - Extremities Exam Extremities exam: Positive for: full ROM. Negative for: normal inspection, pedal edema Additional comments: left hallux with eschar on medial aspect. erythema surrounding eschar, mild tenderness, no drainage noted 2.5 cm by 2 cm in dimension. dp pt pulses palpated bilaterally, warm to touch, erythema on left foot, not sharply demarcated Assessment and Plan - Assessment and Plan (Free Text) Assessment: 62M with pmh htn, hld, dm presents with gangrene of first left toe. Medicine team consulted for uncontrolled HTN gangrene of first left toe, cellulitis of foot patient treated at [place] 10/04 vancomycin Lower extremity angio: intact patent posterior tibial artery with runoff to foot , heavy wall calcifications in left lower extremities. F/u results of OR angio 10/30 uncontrolled HTN Patient to continue home medication for blood pressure Valsartan Coreg increased from 6.25 mg PO BID to 12.5 mg PO BID 10/30/17 Hydralazine 10mg IVP Q6H IVP Hydralazine 50mg PO BID DM insulin sliding scale accucheck q6h hold home medication for diabetes hypoglycemic protocol diet and pain medications to be managed by Surgery Team Iraida Martin <Pawel Zhong H - Last Filed: 10/30/17 15:28> Objective - Vital Signs/Intake and Output Vital Signs (last 24 hours): Temp Pulse Resp BP Pulse Ox 98.1 F 65 20 172/73 H 99 10/30/17 08:18 10/30/17 08:18 10/30/17 08:18 10/30/17 08:18 10/30/17 08:18 Intake and Output: 10/30/17 10/30/17 06:59 18:59 Intake Total 240 0 Balance 240 0 - Medications Medications: Current Medications Alprazolam (Xanax) 0.25 mg PO TID PRN PRN Reason: Anxiety Stop: 11/05/17 15:50 Carvedilol (Coreg) 12.5 mg PO BID [facility] Chlorthalidone (Hygroton) 25 mg PO DAILY [facility] Last Admin: 10/30/17 09:23 Dose: 25 mg Dextrose (Dextrose 50% Inj) 0 ml IVP .STAT PRN; Protocol PRN Reason: Hypoglycemia Protocol Dextrose (Glutose 15) 0 gm PO .ONCE PRN; Protocol PRN Reason: Hypoglycemia Protocol Enoxaparin Sodium (Lovenox) 30 mg SC ONCE ONE Stop: 10/30/17 22:01 Glucagon (Glucagen Diagnostic Kit) 0 mg IM .STAT PRN; Protocol PRN Reason: Hypoglycemia Protocol Hydralazine HCl (Apresoline) 10 mg IVP Q6H PRN PRN Reason: htn Last Admin: 10/29/17 16:28 Dose: 10 mg Hydralazine HCl (Apresoline) 50 mg PO BID [facility] Last Admin: 10/30/17 09:09 Dose: 50 mg Vancomycin/Sodium Chloride (Vancomycin 1 Gm/Ns 200 Ml) 1 gm in 200 mls @ 133 mls/hr IVPB Q24H [facility] Stop: 11/03/17 17:01 Last Admin: 10/29/17 17:00 Dose: 133 mls/hr Dextrose (Dextrose 5% In Water 1000 Ml) 1,000 mls @ 0 mls/hr IV .Q0M PRN; Protocol; Per Protocol PRN Reason: Hypoglycemia Protocol Insulin Human Regular (Novolin R) 0 unit SC ACHS BALA PRN Reason: Protocol Last Admin: 10/30/17 12:06 Dose: Not Given Losartan Potassium (Cozaar) 100 mg PO DAILY [facility] Last Admin: 10/30/17 09:09 Dose: 100 mg Pneumococcal Polyvalent Vaccine (Pneumovax 23 Vaccine) 0.5 ml IM .ONCE ONE Stop: 10/31/17 10:01 - Labs Labs: 10/30/17 07:26 10/30/17 07:26 PT 11.1 SECONDS (9.7-12.2) 10/29/17 10:27 INR 1.0 10/29/17 10:27 Attending/Attestation - Attestation I have personally seen and examined this patient.: Yes I have fully participated in the care of the patient.: Yes I have reviewed all pertinent clinical information, including history, physical exam and plan: Yes Notes (Text): 10/30/17 15:28 Medical attending: Patient was seen and examined by me, agrees the above note by the medical data analyst. Overnight and into the morning the patient's blood pressure was much more decreased than when he came in. His systolic numbers were mostly in the 150 range. When we saw him this morning, he was not as anxious as he was previously. Yesterday he underwent CT angiogram with lower extremity runoff, and this morning when we saw him he had not yet had the aortofemoral angiogram. We will continue to watch the BP, it could benefit from being lower so we increased the coreg to 12.5 PO BID The recenet accuchecks have been 144, 112, 157, 80. He is on a SSI at the moment. We held the metformin/januvia for the time being. thank you Pawel Zhong
[2017-10-30 07:39] LABS: BASO # 0.1 K/uL (0.0-0.2); EOS # 0.2 K/uL (0.0-0.7); EOS % 3.1 % (0.0-4.0); HEMOGLOBIN 11.6 g/dL (12.0-18.0); LYMPH # 1.3 K/uL (1.0-4.3); LYMPH % 21.2 % (20.0-40.0); MEAN CELL VOLUME 90.9 fL (80.0-94.0); MEAN CORPUSCULAR HGB CONC 34.2 g/dL (33.0-37.0); MEAN PLATELET VOLUME 9.2 fL (7.2-11.7); MONO # 0.8 K/uL (0.0-0.8); MONO % 13.1 % (0.0-10.0); NEUT # 3.9 K/uL (1.8-7.0); NEUT % 61.6 % (50.0-75.0); NRBC % 0.1 % (0.0-2.0); RBC 3.73 Mil/uL (4.40-5.90); RED CELL DISTRIBUTION WIDTH 13.2 % (11.5-14.5); WHITE BLOOD COUNT 6.3 K/uL (4.8-10.8)
[2017-10-30 07:52] LABS: ALBUMIN 3.4 g/dL (3.5-5.0); ALT/SGPT 13 U/L (21-72); AST/SGOT 19 U/L (17-59); BLOOD UREA NITROGEN 17 mg/dL (9-20); CALCIUM 8.7 mg/dl (8.6-10.4); GFR AFRICAN-AMERICAN > 60; GFR NON-AFRICAN AMERICAN > 60
[2017-10-30] MEDS: (Novolin R) Insulin Human Regular 100 units/ml vial SC SCH ×4 (09:09→21:52)
[2017-10-30] MEDS ORDERED: Midazolam 2 MG/2 ML VIAL ONE ×2 (13:50→13:51)
[2017-10-30] MEDS ORDERED: Iodixanol 320 MG/ML 100 ML BOTTLE IV ONE (13:56)
[2017-10-30] MEDS ORDERED: Labetalol 25mg/5ml Syringe ONE (14:29)
--- NOTE | 2017-10-30 15:16 | PCM.SURG1 ---
Surgeon's Initial Post Op Note - Surgeon's Notes Surgeon: lauryn [employer] Specialist: 0 Type of Anesthesia: IV Sedation Anesthesia Administered By: jamie Pre-Operative Diagnosis: gangrene left great toe Operative Findings: on left. anterior tibial and peroneal occluded. Posterior tibial open to ankle. at that point 1.5 mm vessel. suitable for atherectomy/ balloon. technical issues prevented intervention at this time Post-Operative Diagnosis: same Operation Performed: aortofemoral angiogram via right groin with selective catherization of left femoral artery- no intervention Specimen/Specimens Removed: 0 Estimated Blood Loss: EBL {In ML}: 25 Blood Products Given: N/A Drains Used: No Drains Post-Op Condition: Good Date of Surgery/Procedure: 10/30/17 Time of Surgery/Procedure: 15:18
[2017-10-30] MEDS: Vancomycin 1 gm/NS 200 ml 1 GM/200 ML BAG IVPB SCH (17:33)
[2017-10-30] MEDS: Dextrose 5%/0.45% NS 1,000 ML IV SCH (17:36)
[2017-10-30] MEDS ORDERED: Enoxaparin 30 mg Syringe SC ONE (22:00)
[2017-10-31] MEDS: Dextrose 5%/0.45% NS 1,000 ML IV SCH ×2 (01:30→06:14)
--- NOTE | 2017-10-31 07:42 | CP.PCM.PN ---
<VeronicaIraida - Last Filed: 10/31/17 10:17> Subjective - Date & Time of Evaluation Date of Evaluation: 10/31/17 Time of Evaluation: 07:38 - Subjective Subjective: Progress note patient seen and examined at bedside denies any complaints overnight patient had an angiogram yesterday but wasnt able to have therapy because of technical issues. Patient denies chest pain, shortness of breath, nausea, vomiting, diarrhea. Objective - Vital Signs/Intake and Output Vital Signs (last 24 hours): Temp Pulse Resp BP Pulse Ox 98.8 F 78 20 187/78 H 98 10/31/17 00:00 10/31/17 06:15 10/31/17 00:00 10/31/17 06:15 10/31/17 00:00 Intake and Output: 10/31/17 10/31/17 06:59 18:59 Intake Total 1050 Output Total 600 Balance 450 - Medications Medications: Current Medications Alprazolam (Xanax) 0.25 mg PO TID PRN PRN Reason: Anxiety Stop: 11/05/17 15:50 Carvedilol (Coreg) 12.5 mg PO BID [facility] Last Admin: 10/30/17 17:36 Dose: 12.5 mg Chlorthalidone (Hygroton) 25 mg PO DAILY [facility] Last Admin: 10/30/17 09:23 Dose: 25 mg Dextrose (Dextrose 50% Inj) 0 ml IVP .STAT PRN; Protocol PRN Reason: Hypoglycemia Protocol Dextrose (Glutose 15) 0 gm PO .ONCE PRN; Protocol PRN Reason: Hypoglycemia Protocol Glucagon (Glucagen Diagnostic Kit) 0 mg IM .STAT PRN; Protocol PRN Reason: Hypoglycemia Protocol Hydralazine HCl (Apresoline) 10 mg IVP Q6H PRN PRN Reason: htn Last Admin: 10/29/17 16:28 Dose: 10 mg Hydralazine HCl (Apresoline) 50 mg PO TID [facility] Vancomycin/Sodium Chloride (Vancomycin 1 Gm/Ns 200 Ml) 1 gm in 200 mls @ 133 mls/hr IVPB Q24H [facility] Stop: 11/03/17 17:01 Last Admin: 10/30/17 17:33 Dose: 133 mls/hr Dextrose (Dextrose 5% In Water 1000 Ml) 1,000 mls @ 0 mls/hr IV .Q0M PRN; Protocol; Per Protocol PRN Reason: Hypoglycemia Protocol Dextrose/Sodium Chloride (Dextrose 5%/0.45% Ns 1000 Ml) 1,000 mls @ 100 mls/hr IV .Q10H [facility] Last Admin: 10/31/17 06:14 Dose: 100 mls/hr Insulin Human Regular (Novolin R) 0 unit SC ACHS [facility] PRN Reason: Protocol Last Admin: 10/30/17 21:52 Dose: Not Given Losartan Potassium (Cozaar) 100 mg PO DAILY [facility] Last Admin: 10/30/17 09:09 Dose: 100 mg Pneumococcal Polyvalent Vaccine (Pneumovax 23 Vaccine) 0.5 ml IM .ONCE ONE Stop: 10/31/17 10:01 - Labs Labs: 10/30/17 07:26 10/30/17 07:26 PT 11.1 SECONDS (9.7-12.2) 10/29/17 10:27 INR 1.0 10/29/17 10:27 - Constitutional Appears: Non-toxic, Younger Than Stated Age - Head Exam Head Exam: ATRAUMATIC, NORMAL INSPECTION, NORMOCEPHALIC - Eye Exam Eye Exam: EOMI, Normal appearance Pupil Exam: NORMAL ACCOMODATION, PERRL - ENT Exam ENT Exam: Mucous Membranes Moist - Neck Exam Neck Exam: Full ROM. absent: Tenderness - Respiratory Exam Respiratory Exam: NORMAL BREATHING PATTERN. absent: Accessory Muscle Use, Chest Wall Tenderness, Decreased Breath Sounds, Clear to Ausculation Bilateral, Rales, Rhonchi, Wheezes, Respiratory Distress, Stridor - Cardiovascular Exam Cardiovascular Exam: REGULAR RHYTHM, +S1, +S2 - Extremities Exam Extremities Exam: Full ROM. absent: Pedal Edema Additional comments: right inguinal area dressing c/d/i no hematoma, ecchymosis. slight tenderness to palpation - Back Exam Back Exam: Full ROM, NORMAL INSPECTION. absent: paraspinal tenderness - Neurological Exam Neurological Exam: Alert, Awake, CN II-XII Intact, Oriented x3 - Psychiatric Exam Psychiatric exam: Normal Affect, Normal Mood - Skin Skin Exam: Dry, Intact, Normal Color, Warm Assessment and Plan - Assessment and Plan (Free Text) Assessment: 62M with pmh htn, hld, dm presents with gangrene of first left toe. Medicine team consulted for uncontrolled HTN gangrene of first left toe, cellulitis of foot patient treated at [place] 10/04 vancomycin Lower extremity angio: intact patent posterior tibial artery with runoff to foot , heavy wall calcifications in left lower extremities. F/u results of OR angio / occluded anterior tibial and peroneal arteries. unable to do therapy at the time due to technical issues. hx uncontrolled HTN Patient to continue home medication for blood pressure Valsartan Coreg increased from 6.25 mg PO BID to 12.5 mg PO BID 10/30/17 hydralazine changed to 50mg PO TID patient discharged on Hydralazine 50mg PO BID DM insulin sliding scale accucheck q6h hold home medication for diabetes hypoglycemic protocol diet and pain medications to be managed by Surgery Team Iraida Martin <Pawel Zhong H - Last Filed: 10/31/17 12:36> Objective - Vital Signs/Intake and Output Vital Signs (last 24 hours): Temp Pulse Resp BP Pulse Ox 98.4 F 69 20 178/70 H 97 10/31/17 07:53 10/31/17 07:53 10/31/17 07:53 10/31/17 09:25 10/31/17 07:53 Intake and Output: 10/31/17 10/31/17 06:59 18:59 Intake Total 1050 Output Total 600 Balance 450 - Medications Medications: Current Medications Alprazolam (Xanax) 0.25 mg PO TID PRN PRN Reason: Anxiety Stop: 11/05/17 15:50 Carvedilol (Coreg) 12.5 mg PO BID [facility] Last Admin: 10/31/17 09:25 Dose: 12.5 mg Chlorthalidone (Hygroton) 25 mg PO DAILY [facility] Last Admin: 10/31/17 09:26 Dose: 25 mg Dextrose (Dextrose 50% Inj) 0 ml IVP .STAT PRN; Protocol PRN Reason: Hypoglycemia Protocol Dextrose (Glutose 15) 0 gm PO .ONCE PRN; Protocol PRN Reason: Hypoglycemia Protocol Glucagon (Glucagen Diagnostic Kit) 0 mg IM .STAT PRN; Protocol PRN Reason: Hypoglycemia Protocol Hydralazine HCl (Apresoline) 50 mg PO TID [facility] Last Admin: 10/31/17 09:26 Dose: 50 mg Hydralazine HCl (Apresoline) 10 mg PO QID PRN PRN Reason: SBP >160 Vancomycin/Sodium Chloride (Vancomycin 1 Gm/Ns 200 Ml) 1 gm in 200 mls @ 133 mls/hr IVPB Q24H [facility] Stop: 11/03/17 17:01 Last Admin: 10/30/17 17:33 Dose: 133 mls/hr Dextrose (Dextrose 5% In Water 1000 Ml) 1,000 mls @ 0 mls/hr IV .Q0M PRN; Protocol; Per Protocol PRN Reason: Hypoglycemia Protocol Insulin Human Regular (Novolin R) 0 unit SC ACHS [facility] PRN Reason: Protocol Last Admin: 10/31/17 12:30 Dose: 1 unit Losartan Potassium (Cozaar) 100 mg PO DAILY [facility] Last Admin: 10/31/17 09:26 Dose: 100 mg - Labs Labs: 10/31/17 08:00 10/31/17 08:00 PT 11.1 SECONDS (9.7-12.2) 10/29/17 10:27 INR 1.0 10/29/17 10:27 Attending/Attestation - Attestation I have personally seen and examined this patient.: Yes I have fully participated in the care of the patient.: Yes I have reviewed all pertinent clinical information, including history, physical exam and plan: Yes Notes (Text): 10/31/17 12:32 Medical consult: Patient was seen and examined by me. Agree with the above note by the resident. The patient was reporting that he felt well. He denied shortness of breath or chest pain, denied abdominal pain. We had a discussion with regards to his blood pressure. I explained to him that he needs to resume all his home medication and also we will be sending the patient with PO hydralazine 50 BID. Enouraged lifestyle modifications as well With reguards to his DM, we advised him to hold of on the metformin for several more days thank you Pawel Zhong
[2017-10-31 07:56] VITALS: BP 178/70; PULSE 69; TEMP 98.4; O2SAT 97
--- NOTE | 2017-10-31 08:03 | CARD ---
APPROVED REPORT EKG Measurement Heart [id number] <Conclusion> Normal sinus rhythm Minimal voltage criteria for LVH, may be normal variant T wave abnormality, consider lateral ischemia Abnormal ECG
[2017-10-31 08:14] LABS: BASO # 0.1 K/uL (0.0-0.2); BASO % 0.9 % (0.0-2.0); EOS # 0.2 K/uL (0.0-0.7); HEMOGLOBIN 11.3 g/dL (12.0-18.0); LYMPH # 1.3 K/uL (1.0-4.3); LYMPH % 20.6 % (20.0-40.0); MEAN CELL VOLUME 91.2 fL (80.0-94.0); MEAN CORPUSCULAR HEMOGLOBIN 31.1 pg (27.0-31.0); MEAN CORPUSCULAR HGB CONC 34.1 g/dL (33.0-37.0); MEAN PLATELET VOLUME 9.2 fL (7.2-11.7); MONO # 0.8 K/uL (0.0-0.8); MONO % 12.9 % (0.0-10.0); NEUT # 4.1 K/uL (1.8-7.0); NEUT % 62.6 % (50.0-75.0); NRBC % 0.1 % (0.0-2.0); RBC 3.63 Mil/uL (4.40-5.90); RED CELL DISTRIBUTION WIDTH 13.4 % (11.5-14.5); WHITE BLOOD COUNT 6.5 K/uL (4.8-10.8)
[2017-10-31 08:33] LABS: ALB/GLOB RATIO 1.1 (1.0-2.1); ALBUMIN 3.3 g/dL (3.5-5.0); ALT/SGPT 7 U/L (21-72); AST/SGOT 15 U/L (17-59); BLOOD UREA NITROGEN 16 mg/dL (9-20); CALCIUM 8.2 mg/dl (8.6-10.4); GFR AFRICAN-AMERICAN > 60; GFR NON-AFRICAN AMERICAN > 60
--- NOTE | 2017-10-31 08:38 | CP.PCM.PN ---
Subjective - Date & Time of Evaluation Date of Evaluation: 10/31/17 Time of Evaluation: 07:00 - Subjective Subjective: Pt seen and examined at bedside this AM. No adverse events overnight. Attempt at angiocath yesterday was unsuccessful d/t difficult access. Patient had no pain at the groin site, abdominal pain, SOB, CP or any other symptoms Objective - Vital Signs/Intake and Output Vital Signs (last 24 hours): Temp Pulse Resp BP Pulse Ox 98.4 F 69 20 178/70 H 97 10/31/17 07:53 10/31/17 07:53 10/31/17 07:53 10/31/17 07:53 10/31/17 07:53 Intake and Output: 10/31/17 10/31/17 06:59 18:59 Intake Total 1050 Output Total 600 Balance 450 - Medications Medications: Current Medications Alprazolam (Xanax) 0.25 mg PO TID PRN PRN Reason: Anxiety Stop: 11/05/17 15:50 Carvedilol (Coreg) 12.5 mg PO BID [facility] Last Admin: 10/30/17 17:36 Dose: 12.5 mg Chlorthalidone (Hygroton) 25 mg PO DAILY [facility] Last Admin: 10/30/17 09:23 Dose: 25 mg Dextrose (Dextrose 50% Inj) 0 ml IVP .STAT PRN; Protocol PRN Reason: Hypoglycemia Protocol Dextrose (Glutose 15) 0 gm PO .ONCE PRN; Protocol PRN Reason: Hypoglycemia Protocol Glucagon (Glucagen Diagnostic Kit) 0 mg IM .STAT PRN; Protocol PRN Reason: Hypoglycemia Protocol Hydralazine HCl (Apresoline) 10 mg IVP Q6H PRN PRN Reason: htn Last Admin: 10/29/17 16:28 Dose: 10 mg Hydralazine HCl (Apresoline) 50 mg PO TID [facility] Vancomycin/Sodium Chloride (Vancomycin 1 Gm/Ns 200 Ml) 1 gm in 200 mls @ 133 mls/hr IVPB Q24H [facility] Stop: 11/03/17 17:01 Last Admin: 10/30/17 17:33 Dose: 133 mls/hr Dextrose (Dextrose 5% In Water 1000 Ml) 1,000 mls @ 0 mls/hr IV .Q0M PRN; Protocol; Per Protocol PRN Reason: Hypoglycemia Protocol Insulin Human Regular (Novolin R) 0 unit SC ACHS [facility] PRN Reason: Protocol Last Admin: 10/30/17 21:52 Dose: Not Given Losartan Potassium (Cozaar) 100 mg PO DAILY [facility] Last Admin: 10/30/17 09:09 Dose: 100 mg Pneumococcal Polyvalent Vaccine (Pneumovax 23 Vaccine) 0.5 ml IM .ONCE ONE Stop: 10/31/17 10:01 - Labs Labs: 10/31/17 08:00 10/31/17 08:00 PT 11.1 SECONDS (9.7-12.2) 10/29/17 10:27 INR 1.0 10/29/17 10:27 - Constitutional Appears: Well, Non-toxic, No Acute Distress - Head Exam Head Exam: ATRAUMATIC, NORMOCEPHALIC - Eye Exam Eye Exam: Normal appearance. absent: Conjunctival injection, Scleral icterus - ENT Exam ENT Exam: Mucous Membranes Moist, Normal Oropharynx - Respiratory Exam Respiratory Exam: NORMAL BREATHING PATTERN. absent: Accessory Muscle Use, Respiratory Distress - GI/Abdominal Exam GI & Abdominal Exam: Soft. absent: Distended, Tenderness - Extremities Exam Extremities Exam: absent: Calf Tenderness, Pedal Edema Additional comments: right groin dressign c/d/i, no swelling or ecchymosis. - Neurological Exam Neurological Exam: Alert, Awake, Oriented x3 - Psychiatric Exam Psychiatric exam: Normal Affect, Normal Mood - Skin Skin Exam: Dry, Intact, Normal Color, Warm Assessment and Plan - Assessment and Plan (Free Text) Assessment: 62 M with left foot dry gangrene Plan: - Patient will need a repeat angiocatheterization attempt at some time in the future, timing to be determined - For now, local wound care - Monitor BP closely and administer hydralazine as needed for SBP greater than 160 - F/U internal medicine consult recs--appreciated - PRN pain medication Discussed with Dr. Milan, further recs per him. Ese Ruffin, PGY2
[2017-10-31] MEDS: (Novolin R) Insulin Human Regular 100 units/ml vial SC SCH ×2 (08:41→12:30)
[2017-10-31] MEDS ORDERED: Pneumococcal 23-Valent Vaccine IM ONE (10:00)
--- NOTE | 2017-10-31 13:16 | OP ---
DATE: 10/30/2017 PREOPERATIVE DIAGNOSIS: Gangrene of great toe. POSTOPERATIVE DIAGNOSIS: Gangrene of great toe. PROCEDURE CARRIED OUT: Aortofemoral angiogram with selective catheterization of the left femoral artery. SURGEON: Jonathan Milan MD TRANSITIONAL [place]ER[place]ARTEN TEACHER: None. ANESTHESIOLOGIST: Mr. Gil ANESTHESIA: Local with sedation. INDICATIONS: A 62-year-old male diabetic with left great toe gangrene. Preoperative imaging suggests tibial disease, however, the major finding is that this is primarily infragenicular disease. PROCEDURE: The patient was given local anesthesia. Right groin was prepped and a catheter placed with the Omni Flush catheter being positioned at the level of the renal arteries. Multiple overlapping angiograms were taken at this level down to the level of the foot. FINDINGS: The aortorenal arteries with recent occlusive disease, both abdominal aorta, iliac arteries, external iliac arteries, internal iliac arteries, common femoral arteries, superficial femoral arteries were widely patent. On the right side, detailed pictures were not taken below the level of the trifurcation, which appeared patent. In the left leg, the vessels were widely patent all the way down to the trifurcation. At this point, the posterior tibial continued to the ankle where there was severe multiple 95% stenosis below the level of the ankle leading into the foot. Posterior tibial was occluded approximately 3 inches after its origin that reconstituted only below the ankle with branches of the dorsal pedis. Perineal artery occluded soon after its origin, did not reconstitute distally. Subsequent to the performance of diagnostic arteriogram, a stiff-angled guidewire was advanced over the aortic bifurcation and we advanced the catheter down to the level of the popliteal artery. Despite a variety of techniques, variety of wires, we were unable to advance the catheter, kept prolapsing up into the aorta. In addition, it also appeared at this time there is some extravasation of the groin. The prolapse had occurred here. It appeared that we did not have a stiff-angled Glidewire, but this was prolapsing due to a regular Glidewire. At this point, due to the extravasation of the groin, I abandoned the procedure. Nonetheless, there was a good target vessel suitable for intervention below the level of the ankle on the posterior tibial artery. Re-intervention will be undertaken in the near future, when we were satisfied with the patient's condition. OPERATION CARRIED OUT: Aortofemoral angiogram with selective catheterization of the left femoral artery. No intervention done. Jonathan Milan Jr., MD
--- NOTE | 2017-10-31 13:58 | CP.PCM.DIS ---
Provider - Provider Date of Admission: 10/29/17 10:57 Attending physician: Jonathan Dallas Jr, MD Time Spent in preparation of Discharge (in minutes): 45 Diagnosis - Discharge Diagnosis (1) Gangrene of toe of left foot Status: Acute Priority: High (2) PVD (peripheral vascular disease) Status: Acute (3) Hyperlipidemia Status: Chronic (4) Diabetes Status: Chronic Hospital Course - Lab Results Lab Results: Most Recent Lab Values WBC 6.5 K/uL (4.8-10.8) 10/31/17 08:00 RBC 3.63 Mil/uL (4.40-5.90) L 10/31/17 08:00 Hgb 11.3 g/dL (12.0-18.0) L 10/31/17 08:00 Hct 33.1 % (35.0-51.0) L 10/31/17 08:00 MCV 91.2 fL (80.0-94.0) 10/31/17 08:00 MCH 31.1 pg (27.0-31.0) H 10/31/17 08:00 MCHC 34.1 g/dL (33.0-37.0) 10/31/17 08:00 RDW 13.4 % (11.5-14.5) 10/31/17 08:00 Plt Count 214 K/uL (130-400) 10/31/17 08:00 MPV 9.2 fL (7.2-11.7) 10/31/17 08:00 Neut % (Auto) 62.6 % (50.0-75.0) 10/31/17 08:00 Lymph % (Auto) 20.6 % (20.0-40.0) 10/31/17 08:00 [place] % (Auto) 12.9 % (0.0-10.0) H 10/31/17 08:00 Eos % (Auto) 3.0 % (0.0-4.0) 10/31/17 08:00 Baso % (Auto) 0.9 % (0.0-2.0) 10/31/17 08:00 Neut # (Auto) 4.1 K/uL (1.8-7.0) 10/31/17 08:00 Lymph # (Auto) 1.3 K/uL (1.0-4.3) 10/31/17 08:00 [place] # (Auto) 0.8 K/uL (0.0-0.8) 10/31/17 08:00 Eos # (Auto) 0.2 K/uL (0.0-0.7) 10/31/17 08:00 Baso # (Auto) 0.1 K/uL (0.0-0.2) 10/31/17 08:00 PT 11.1 SECONDS (9.7-12.2) 10/29/17 10:27 INR 1.0 10/29/17 10:27 Sodium 138 mmol/L (132-148) 10/31/17 08:00 Potassium 3.7 mmol/L (3.6-5.2) 10/31/17 08:00 Chloride 103 mmol/L (98-107) 10/31/17 08:00 Carbon Dioxide 24 mmol/L (22-30) 10/31/17 08:00 Anion Gap 15 (10-20) 10/31/17 08:00 BUN 16 mg/dL (9-20) 10/31/17 08:00 Creatinine 0.7 mg/dL (0.8-1.5) L 10/31/17 08:00 Est GFR ( Amer) > 60 10/31/17 08:00 Est GFR (Non-Af Amer) > 60 10/31/17 08:00 POC Glucose (mg/dL) 192 mg/dL (65-110) H 10/31/17 11:14 Random Glucose 158 mg/dL (75-110) H 10/31/17 08:00 Calcium 8.2 mg/dl (8.6-10.4) L 10/31/17 08:00 Total Bilirubin 0.4 mg/dL (0.2-1.3) 10/31/17 08:00 AST 15 U/L (17-59) L D 10/31/17 08:00 ALT 7 U/L (21-72) L D 10/31/17 08:00 Alkaline Phosphatase 43 U/L (38-126) 10/31/17 08:00 Total Protein 6.4 g/dL (6.3-8.3) 10/31/17 08:00 Albumin 3.3 g/dL (3.5-5.0) L 10/31/17 08:00 Globulin 3.1 gm/dL (2.2-3.9) 10/31/17 08:00 Albumin/Globulin Ratio 1.1 (1.0-2.1) 10/31/17 08:00 Urine Color Yellow (YELLOW) 10/29/17 11:48 Urine Clarity Clear (Clear) 10/29/17 11:48 Urine pH 6.0 (5.0-8.0) 10/29/17 11:48 Ur Specific [place] 1.015 (1.003-1.030) 10/29/17 11:48 Urine Protein Negative mg/dL (NEGATIVE) 10/29/17 11:48 Urine Glucose (UA) 3+ mg/dL (Normal) H 10/29/17 11:48 Urine Ketones Negative mg/dL (NEGATIVE) 10/29/17 11:48 Urine Blood Negative (NEGATIVE) 10/29/17 11:48 Urine Nitrate Negative (NEGATIVE) 10/29/17 11:48 Urine Bilirubin Negative (NEGATIVE) 10/29/17 11:48 Urine Urobilinogen Normal mg/dL (0.2-1.0) 10/29/17 11:48 Ur Leukocyte Esterase Neg [place]/uL (Negative) 10/29/17 11:48 Urine WBC (Auto) < 1 /hpf (0-5) 10/29/17 11:48 Urine RBC (Auto) < 1 /hpf (0-3) 10/29/17 11:48 Blood Type A POSITIVE 10/29/17 10:59 Antibody Screen Negative 10/29/17 10:59 - Hospital Course Hospital Course: 62 M who presented o the ED with 6 weeks of left great toe wound. Patient underwent CTA which was limited due to heavy arterial wall calcification, but there was a grossly patent posterior tibial artery with runoff to the foot. Further evaluation was deemed necessary and patient underwent an attempted angiocatheterization to assess for stenosis. Angiocatheterization was not completed successfully d/t difficulty with access. Patient was admitted overnight for monitoring of the access site. Patient recovered well with no complications. During hospitalization patient was found to have very high blood pressure and an internal medicine consult was called. Patient was placed on hydralazine with improved blood pressure control. Patient was discharged to home with hydralazine and silvadene for toe with plans for follow up with Dr. Dallas for further angiocatheterization and intervention. Patient was also instructed to follow up with his primary doctor as soon as possible. For full hospital course please refer to chart Discharge Exam - Head Exam Head Exam: ATRAUMATIC, NORMAL INSPECTION, NORMOCEPHALIC - Eye Exam Eye Exam: Normal appearance. absent: Conjunctival injection, Scleral icterus - ENT Exam ENT Exam: Mucous Membranes Moist, Normal Oropharynx - Respiratory Exam Respiratory Exam: NORMAL BREATHING PATTERN, UNREMARKABLE. absent: Accessory Muscle Use - Cardiovascular Exam Cardiovascular Exam: RRR - Extremities Exam Additional comments: left foot with dressing C/D/I over great toe. Right groin access site with dressing C/D/I, no swelling or ecchymosis - Neurological Exam Neurological exam: Alert, Oriented x3 - Skin Skin Exam: Dry, Normal Color, Warm Discharge Plan - Discharge Medications Prescriptions: hydrALAZINE [Apresoline] 50 mg PO BID #60 tab Silver Sulfadiazine 1% 25 gm [Silvadene 1% 25 gm] 25 gm TP BID #1 bottle - Follow Up Plan Condition: STABLE Disposition: HOME/ ROUTINE Instructions: Peripheral Vascular (Arterial) Disease (DC), Gangrene (DC), Hypertension (DC), Hypertension (GEN) Additional Instructions: continue home bp medications. take hydralazine 50mg BID in addition (per medicine team) F/U with Dr. Dallas in 1 week for repeat angio
== END 2017-10-31 16:15 | disposition home or self-care (01) | DRG 253 ==
LOC: C.ER 09:35 → C.9E 10:57 → C.3T 15:10
PROVIDERS: ADMIT Surgery Vascular Surgery; ATTEND Surgery Vascular Surgery
PROC: B40D1ZZ Plain Radiography of Aorta and Bilateral Lower Extremity Arteries using Low Osmolar Contrast (ICD-10-PCS; principal; 2017-10-29)
PROC: 04HL3DZ Insertion of Intraluminal Device into Left Femoral Artery, Percutaneous Approach (ICD-10-PCS; 2017-10-30)
DX: E11.52 Type 2 diabetes mellitus with diabetic peripheral angiopathy with gangrene (principal); L03.116 Cellulitis of left lower limb; E78.5 Hyperlipidemia, unspecified; I11.0 Hypertensive heart disease with heart failure; I50.9 Heart failure, unspecified; G62.9 Polyneuropathy, unspecified

== ENCOUNTER 2017-11-06 10:06 | Emergency (ER) | payer MEDICARE, MEDICAID ==
[2017-11-06 10:06] VITALS: BMI 35.4
[2017-11-06 10:20] VITALS: BP 186/68; PULSE 75; RESP 20; TEMP 98.1; O2SAT 98
--- NOTE | 2017-11-06 11:35 | C.PDOC ---
History Of Present Illness 62 year old male, w/PMhx of Diabetes and HTN, presents to the ER complaining of generalized body rash which has been present for the past 2 days. Patient states that he is not sure about the cause of the rash. Patient reports that he called his PMD and he instructed him to stop taking his medications. He stopped taking his medications. Of note, he denies taking any new medications recently.Patient woke up with high BP in the morning today. Otherwise, patient denies having CP, SOB, and difficulty swallowing. Time Seen by Provider: 11/06/17 11:07 Chief Complaint (Nursing): Abnormal Skin Integrity History Per: Patient History/Exam Limitations: no limitations Onset/Duration Of Symptoms: Days Current Symptoms Are (Timing): Still Present Severity: Moderate Past Medical History Reviewed: Historical Data, Nursing Documentation, Vital Signs Vital Signs: Last Vital Signs Temp 98.1 F 11/06/17 10:18 Pulse 75 11/06/17 10:18 Resp 20 11/06/17 10:18 BP 186/68 H 11/06/17 10:18 Pulse Ox 98 11/06/17 12:08 - Medical History PMH: CHF, Diabetes, HTN, Hypercholesterolemia, Peripheral Edema (NO LONGER) Denies: Chronic Kidney Disease Other Surgeries: Hx of surgeries - [facility] Procedures INSERTION OF INTRALUM DEV INTO L FEM ART, PERC APPROACH (10/29/17) PLAIN RADIOGRAPHY OF AORTA, BI LE ART USING L OSM CONTRAST (10/29/17) Family History: States: No Known Family Hx - Social History Hx Alcohol Use: No Hx Substance Use: No - Immunization History Hx Tetanus Toxoid Vaccination: No Hx Influenza Vaccination: Yes Hx Pneumococcal Vaccination: Yes Review Of Systems Except As Marked, All Systems Reviewed And Found Negative. Constitutional: Negative for: Fever, Chills Cardiovascular: Negative for: Chest Pain Respiratory: Negative for: Shortness of Breath Skin: Positive for: Rash Physical Exam - Physical Exam Appears: Non-toxic, No Acute Distress Skin: Normal Color, Warm, Rash (urticaria to the chest and back) Head: Atraumatic, Normacephalic Eye(s): bilateral: Normal Inspection Nose: Normal Oral Mucosa: Moist Tongue: Normal Appearing, No Swelling Lips: Normal Appearing, No Swelling Throat: Normal, No Erythema, No Exudate Neck: Supple Chest: Symmetrical Cardiovascular: Rhythm Regular Respiratory: Normal Breath Sounds, No Rales, No Rhonchi, No Wheezing Neurological/Psych: Oriented x3, Normal Speech ED Course And Treatment O2 Sat by Pulse Oximetry: 98 (RA) Pulse Ox Interpretation: Normal Medical Decision Making Medical Decision Making: Impression: Urticaria Plan: --Benadryl PO --Pepcid PO Updates: Patient has been instructed to resume all his medications for Diabetes and HTN. Patient has been discharged and advised to follow up with PMD. Disposition Counseled Patient/Family Regarding: Diagnosis, Need For Followup, Rx Given - Disposition Disposition: HOME/ ROUTINE Disposition Time: 11:32 Condition: GOOD Additional Instructions: Take Benadryl 1-2 pills every 4-6 hours for itching and rash Take Pepcid daily for rash Apply cream for itching and rash Tamarack Benadryl 1-2 pastillas cada 4-6 horas para picazn y erupcin [place] Pepcid diariamente para la erupcin Aplique la crema para la picazn y la erupcin Prescriptions: DiphenhydrAMINE [Benadryl] 25 mg PO Q4 #30 cap Famotidine [Pepcid] 20 mg PO DAILY #20 tab Hydrocortisone [Cortisone] 60 gm TP BID #1 cream..g. Instructions: Ibrahima (DC) Forms: [place] (Wallisian) Print Language: SENEGALESE - POA Present On Arrival: None - Clinical Impression Clinical Impression: Urticaria - PA / SVP [employer] OPERATIONS / Resident Statement MD/DO has reviewed & agrees with the documentation as recorded. - Scribe Statement The provider has reviewed the documentation as recorded by the Jasmeet Canales Provider Attestation All medical record entries made by the Jasmeet were at my direction and personally dictated by me. I have reviewed the chart and agree that the record accurately reflects my personal performance of the history, physical exam, medical decision making, and the department course for this patient. I have also personally directed, reviewed, and agree with the discharge instructions and disposition.
== END 2017-11-06 11:48 | disposition home or self-care (01) ==
LOC: C.ER 10:06
DX: L50.9 Urticaria, unspecified (principal)

== ENCOUNTER 2017-11-12 08:02 | Day surgery (SDC) | payer MEDICARE, MEDICAID ==
[2017-11-06 08:47] VITALS: BMI 35.4
[2017-11-12] MEDS ORDERED: Midazolam 2 MG/2 ML VIAL ONE ×2 (09:54→10:06)
[2017-11-12] MEDS ORDERED: Iodixanol 320 MG/ML 200 ML BOTTLE IV ONE ×2 (09:56→10:12)
[2017-11-12] MEDS ORDERED: Nitroglycerin 50mg in D5W 50 MG/250 ML BOTTLE IV ONE (09:56)
[2017-11-12] MEDS ORDERED: LIDOCAINE 2% PF (2ML) ONE (10:33)
[2017-11-12] MEDS ORDERED: Verapamil 2 ML ONE (11:14)
[2017-11-12] MEDS ORDERED: Labetalol 25mg/5ml Syringe ONE (11:32)
--- NOTE | 2017-11-12 12:29 | PCM.SURG1 ---
Surgeon's Initial Post Op Note - Surgeon's Notes Surgeon: lauryn Bean Sprout Grower: 0 Type of Anesthesia: IV Sedation Anesthesia Administered By: jamie Pre-Operative Diagnosis: gangrene left great toe Operative Findings: occlusion of posterior tibial artery at ankle. occluded distal anterior tibial. severe stenosis proximal peroneal artery Post-Operative Diagnosis: same Operation Performed: aortofemoral angiogram via right groin. selective catherization of left femoral artery. csi atherectomy of posterior tibial artery. balloon angioplasty of proximal peroneal artery. perclose left groin Specimen/Specimens Removed: 0 Estimated Blood Loss: EBL {In ML}: 50 Blood Products Given: N/A Drains Used: No Drains Post-Op Condition: Good Date of Surgery/Procedure: 11/12/17 Time of Surgery/Procedure: 12:30
[2017-11-12] MEDS ORDERED: Dextrose 5%/0.45% NS 1,000 ML IV SCH (12:45)
[2017-11-13 12:15] VITALS: RESP 11; O2SAT 100
--- NOTE | 2017-11-13 13:47 | OP ---
DATE: 11/12/2017 PREOPERATIVE DIAGNOSIS: Gangrene, left great toe. POSTOPERATIVE DIAGNOSIS: Gangrene, left great toe. PROCEDURE CARRIED OUT: Aortofemoral angiogram with selective catheterization of left femoral artery. CSI atherectomy of the posterior tibial artery at the ankle with angioplasty at the ankle and then balloon angioplasty of the peroneal artery. SURGEON: Jonathan Milan Jr, MD MAINTENANCE ENGINEER OIL FIELD: None. ANESTHESIOLOGIST: Mr. Jeffery Hubbard. INDICATIONS: The patient is a 62-year-old male diabetic with gangrene of the great toe. OPERATIVE FINDINGS: The aortorenal arteries, common iliac, internal iliac, external iliac, common femoral arteries appear to have some occlusive disease. On the right side, the superficial femoral artery is widely patent down to the level of the popliteal artery and there is severe trifurcation disease. Detailed pictures were not taken below the level on the right. On the left side, the posterior tibial artery was the main vessel into the foot. The anterior tibial was patent at its origin, but out midway and the peroneal artery had severe stenosis just after its origin. With some difficulty, we were able to cross with an 0.014 wire across the lesion below the ankle and then use a CSI atherectomy device successfully. Initial pictures showed severe spasm. This was ballooned with a 2-mm balloon. Eventually, there was excellent flow as demonstrated on the following x-ray. We then ballooned the peroneal artery on the way out. Perclose device was deployed in the groin. So the operation carried out, aortofemoral angiogram with selective catheterization of left femoral artery, CSI atherectomy of the left posterior tibial artery below the ankle with an angioplasty of same, balloon angioplasty of the peroneal artery using a 2.5 mm balloon. Perclose device was deployed in the groin. Jonathan Milan Jr., MD cc: ____
== END 2017-11-12 17:00 | disposition home or self-care (01) ==
LOC: C.SPRAD 08:02
PROVIDERS: ATTEND Surgery Vascular Surgery
DX: E11.52 Type 2 diabetes mellitus with diabetic peripheral angiopathy with gangrene (principal); I96 Gangrene, not elsewhere classified; I10 Essential (primary) hypertension
CPT/HCPCS: 36247; 37228; 37229; 75625; 75716; 75774; 82948; 99152; 99153; C1714; C1725; C1760; C1766; C1769; C1887; C1894; J0360; J1644; J2250; J3010; J7042; Q9966